=== PATIENT | female | born 1960 | race Caucasian/White ===

== ENCOUNTER → 2017-10-28 | Outpatient (CLI) | payer OTHER, MEDICARE | END | disposition home or self-care (01) | LOC: CT 13:30 | DX: J32.9 Chronic sinusitis, unspecified (principal) | CPT/HCPCS: 70486 ==

== ENCOUNTER 2017-12-01 12:25 | Observation (INO) | payer OTHER ==
[~2017-12-01 12:25] MED LIST: LIDOCAINE 1% PF 2 ML VIAL. ID; ONDANSETRON PF 4 MG/2 ML VIAL. IV; ceFAZolin 2GM PREMIX 2 GM/50 ML BAG IV; fentaNYL PF VIAL 100 MCG/2 ML VIAL IV
[2017-12-01] MEDS ORDERED: PHENYLEPHRINE 0.25% NASAL SPRAY 15ML BOTTLE. NS (13:04)
[2017-12-01] MEDS ORDERED: MUPIROCIN 2 % NASAL OINTMENT 22GM TUBE. NS (13:04)
[2017-12-01] MEDS: IV RINGERS,LACTATED 1000ML 1,000 ML IV ×2 (13:26→17:31)
[2017-12-01] MEDS: OXYMETAZOLINE 0.05% NASAL SPRAY 30ML BOTTLE. NS ×2 (13:26→14:51)
[2017-12-01 13:36] LABS: POC GLUCOSE 103 mg/dL (70-99)
[2017-12-01] MEDS ORDERED: LIDOCAINE 1% PF 5 ML VIAL. (13:50)
[2017-12-01] MEDS ORDERED: ONDANSETRON PF 4 MG/2 ML VIAL. (13:50)
[2017-12-01] MEDS ORDERED: DEXAMETHASONE SOD PHOS 20 MG/5 ML VIAL. (13:50)
[2017-12-01] MEDS ORDERED: PROPOFOL 20 ML IV (13:50)
[2017-12-01] MEDS ORDERED: LIDOCAINE 4% KIT 4 ML SOLUTION. TP (13:50)
[2017-12-01] MEDS ORDERED: fentaNYL PF VIAL 100 MCG/2 ML VIAL ×2 (13:51→15:10)
[2017-12-01] MEDS ORDERED: MIDAZOLAM HCL/PF 2 MG/2 ML VIAL. (14:21)
[2017-12-01] MEDS: EPINEPHrine VIAL 30 MG/30 ML VIAL (14:51)
[2017-12-01] MEDS: LIDOCAINE 1%/EPI 1:100,000 20 ML VIAL. (14:51)
[2017-12-01] MEDS ORDERED: FAMOTIDINE 20 MG/2 ML VIAL (15:14)
[2017-12-01] MEDS ORDERED: SEVOFLURANE > 120 MINUTES. IH ×2 (15:15→16:38)
[2017-12-01] MEDS ORDERED: GLYCOPYRROLATE 1 MG/5 ML VIAL. (16:39)
[2017-12-01] MEDS ORDERED: NEOSTIGMINE 10 MG/10 ML VIAL. (16:39)
[2017-12-01] MEDS ORDERED: OXYMETAZOLINE 0.05% NASAL SPRAY 30ML BOTTLE. NS (17:00)
[2017-12-01] MEDS ORDERED: METOCLOPRAMIDE HCL 10 MG/2 ML VIAL. IV (17:00)
[2017-12-01] MEDS ORDERED: diphenhydrAMINE 50 MG/ML VIAL IV (17:00)
[2017-12-01] MEDS ORDERED: ZOLPIDEM 5 MG TABLET. PO (17:00)
[2017-12-01] MEDS ORDERED: ACETAMINOPHEN 325 MG TABLET. PO (17:00)
[2017-12-01] MEDS ORDERED: CALCIUM CARBONATE 500 MG TAB.CHEW PO (17:00)
[2017-12-01] MEDS ORDERED: PROCHLORPERAZINE 5 MG TABLET. PO (17:00)
[2017-12-01] MEDS ORDERED: DEXTROSE 50% 25 GM / 50ML DISP.SYRIN. IV (17:00)
[2017-12-01] MEDS: fentaNYL PF VIAL 100 MCG/2 ML VIAL IV ×4 (17:20→18:37)
[2017-12-01] MEDS: PROCHLORPERAZINE 10 MG/2 ML VIAL. IV ×2 (17:25→17:50)
[2017-12-01] MEDS: MORPHINE SULFATE 4 MG/ML DISP.SYRIN. IV ×2 (18:20→21:40)
[2017-12-01] MEDS: AMOXICILLIN/K CLAV 875/125MG TABLET. PO (21:34)
[2017-12-02] MEDS ORDERED: NON FORMULARY ITEM (Albuterol Sulfate (Ventolin Hfa Inhaler) 2 PUFF) INH (00:15)
[2017-12-02] MEDS ORDERED: ALBUTEROL SULFATE 2.5 MG/3 ML NEBU. NEB (00:30)
[2017-12-02] MEDS: ALPRAZolam 0.25 MG TABLET PO (03:07)
[2017-12-02] MEDS: oxyCODONE/APAP 5/325 1 TAB TABLET PO (05:04)
[2017-12-02] MEDS: LEVOTHYROXINE 112 MCG TABLET PO (08:49)
[2017-12-02] MEDS: buPROPion XL 150 MG TAB.ER.24H. PO (08:49)
[2017-12-02] MEDS: PRENATAL MULTIVITAMIN TABLET. PO (08:49)
[2017-12-02] MEDS: hydroCHLOROthiazide 25 MG TABLET PO (08:49)
[2017-12-02] MEDS: LISINOPRIL 10 MG TABLET PO (08:50)
[2017-12-02] MEDS: metFORMIN XR 500 MG TAB.ER.24H PO (08:50)
[2017-12-02] MEDS: MONTELUKAST SODIUM 10 MG TABLET. PO (08:50)
[2017-12-02] MEDS: POTASSIUM CHLORIDE 10 MEQ TABLET.ER. PO (08:50)
[2017-12-02] MEDS: SENNOSIDES/DOCUSATE 8.6/50MG TABLET. PO (08:50)
[2017-12-02] MEDS: AMOXICILLIN/K CLAV 875/125MG TABLET. PO (08:50)
[2017-12-02] MEDS: ERGOCALCIFEROL (VITAMIN D2) 50,000 UNIT CAPSULE. PO (08:50)
[2017-12-02] MEDS: ESTRADIOL 1 MG TABLET. PO (08:51)
[2017-12-02] MEDS: PANTOPRAZOLE 40 MG TABLET.DR. PO (08:51)
[2017-12-02] MEDS: oxyCODONE IR 5 MG TABLET PO ×2 (08:51→14:06)
[2017-12-02] MEDS: ASPIRIN CHEWABLE 81 MG TABLET. PO (09:02)
[2017-12-02] MEDS ORDERED: PNEUMOCOCCAL VAX SCREEN BY RX. MC (15:00)
[2017-12-02] MEDS: PNEUMOC CONJ VACC 23-VALENT 0.5 ML VIAL. VAX IM (15:05)
[2017-12-02] MEDS ORDERED: BISACODYL 10 MG SUPP.RECT. PR (16:00)
[2017-12-02] MEDS ORDERED: LACTOBACILLUS RHAMNOSUS GG 1 CAPSULE. PO (21:00)
[2017-12-02] MEDS ORDERED: ATORVASTATIN CALCIUM 20 MG TABLET PO (21:00)
[2017-12-02] MEDS ORDERED: traZODone 50 MG TABLET. PO (21:00)
== END 2017-12-02 15:05 | disposition home or self-care (01) ==
LOC: SURG 12:25 → 4 NORTH 18:55
PROVIDERS: Otolaryngology
DX: J01.90 Acute sinusitis, unspecified (principal); J34.2 Deviated nasal septum; J34.3 Hypertrophy of nasal turbinates; M77.9 Enthesopathy, unspecified; Z23 Encounter for immunization
CPT/HCPCS: 30520; 82962; 90471; 90732; 94760; 96374; C1769; G0378; G0379; J0171; J0690; J0780; J1100; J2250; J2270; J2405; J2704; J2710; J3010; J3490; J7120; S0028